=== PATIENT | female | born 1990 | race Caucasian/White ===

== ENCOUNTER 2020-06-19 09:47 | Outpatient (REF) | payer OTHER, SELFPAY ==
[2020-06-21 09:09] LABS: SARS-CoV-2 RNA Source Nasal/Nares
[2020-06-21 09:10] LABS: SARS-CoV-2 RNA Detected (NotDetected)
== END 2020-06-19 10:07 ==
LOC: LBO 09:47
PROVIDERS: PCP Nurse Practitioner; Visit Provider Nurse Practitioner Family
DX: Z11.59 Encounter for screening for other viral diseases (principal)
CPT/HCPCS: U0003

== ENCOUNTER 2021-02-25 11:36 | Outpatient (CLI) | payer OTHER, SELFPAY ==
--- NOTE | 2021-02-25 11:15 | DI.US_ITS ---
Exam(s) US OB 1ST TRIMESTER EXAM: US OB 1ST TRIMESTER CLINICAL HISTORY: pelvic pain at 5 weeks gestation, ? cyst, confirm IUP if poss. TECHNIQUE: First trimester obstetrical ultrasound was performed. COMPARISON: US OB US 2-3 TRIMESTER TRANSABD*P from 09/11/2015 FINDINGS: There is an intrauterine gestational sac which contains a yolk sac diameter-3 millimeters. Not able to visualize a pole at this time. Gestational sac measurement is approximately 6 weeks. There is a small subchorionic hemorrhage adjacent to the gestational sac Maternal ovaries: Left ovary is not seen. No fluid in the left adnexa. The right ovary measures 2.7 x 2.2 x 2.2 cm and contains corpus luteal cyst measuring 1.3 cm. There is no fluid in the cul-de-sac and adnexal regions. IMPRESSION:: Intrauterine gestational sac which contains a yolk sac but no obvious pole at thi s time. There is a small subchorionic hemorrhage. Recommend repeat transvaginal study in 1 week The left ovary was not able to be seen on today's study. There is no free fluid in the adnexal regions are cul-de-sac. DATA REPOSITORY:
[2021-02-25 12:20] LABS: HCG Quant, Pregnancy 14175 mIU/mL (1-3)
== END 2021-02-25 11:37 | disposition home or self-care (01) ==
LOC: LBO 12:05
PROVIDERS: PCP Nurse Practitioner; Visit Provider Advanced Practice Midwife
DX: R10.2 Pelvic and perineal pain (principal); N83.11 Corpus luteum cyst of right ovary; Z3A.01 Less than 8 weeks gestation of pregnancy
CPT/HCPCS: 36415; 76801; 84702

== ENCOUNTER 2021-03-01 02:28 | Outpatient (CLI) | payer OTHER, SELFPAY ==
[2021-03-01 15:12] LABS: HCG Quant, Pregnancy 30798 mIU/mL (1-3)
== END 2021-03-01 02:29 | disposition home or self-care (01) ==
LOC: LBO 02:28
PROVIDERS: PCP Nurse Practitioner; Visit Provider Advanced Practice Midwife
DX: N92.6 Irregular menstruation, unspecified (principal); R10.2 Pelvic and perineal pain
CPT/HCPCS: 36415; 84702

== ENCOUNTER 2021-04-06 03:23 | Outpatient (CLI) | payer OTHER, SELFPAY ==
[2021-04-06 12:10] LABS: Abs Immature Grans 0.02 10^3/uL (0.0-0.06); Absolute Basophil Count 0.02 10^3/uL (0.0-0.2); Absolute Lymphocyte Count 2.05 10^3/uL (1.2-3.4); Absolute Monocyte Count 0.54 10^3/uL (0.1-0.8); Absolute Neutrophil Count 6.93 10^3/uL (1.2-6.7); Basophils % 0.2; HCT 39.9 % (36.0-46.0); Immature Grans % 0.2; MCH 28.8 pg (27.0-33.0); MCHC 32.6 % (32.0-36.0); MCV 88.5 fL (80-95); MPV 10.6 fL (8.0-11.0); Monocytes % 5.5; Neutrophils % 71.1; Nucleated RBC 0 %; Platelet Count 261 10^3/uL (130-400); RBC 4.51 10^6/uL (3.93-5.22); RDW 12.8 % (11.7-14.6); RDW-SD 41.3 fL; WBC 9.76 10^3/uL (4.4-10.8)
[2021-04-06 12:14] LABS: Glucose,1 Hr (Glucola) 83 mg/dL (80-140)
[2021-04-06 14:02] LABS: TSH (W/Ref FT4) 1.49 uIU/mL (0.36-3.74)
[2021-04-07 11:13] LABS: Varicella IgG Antibody Positive (See Note)
[2021-04-07 11:14] LABS: Rubella IgG Ab (UVM) Positive (See Note)
[2021-04-07 11:46] LABS: Hepatitis B Surface Ag Negative (Negative)
[2021-04-07 12:10] LABS: Hepatitis C Ab w Rflx HCV PCR Negative (Negative)
[2021-04-07 12:35] LABS: HIV-1/2 Ag & Ab Screen Negative (Negative)
[2021-04-07 14:53] LABS: Chlamydia Result Negative (Negative); GC Result Negative (Negative)
[2021-04-08 11:07] LABS: Syphilis Total Ab w/Reflex Nonreactive (Nonreactive)
== END 2021-04-06 03:24 | disposition home or self-care (01) ==
LOC: LBO 03:23
PROVIDERS: Advanced Practice Midwife; PCP Nurse Practitioner; Visit Provider Advanced Practice Midwife
DX: O99.211 Obesity complicating pregnancy, first trimester (principal); R53.83 Other fatigue; Z11.3 Encounter for screening for infections with a predominantly sexual mode of transmission; Z11.4 Encounter for screening for human immunodeficiency virus [HIV]; Z11.59 Encounter for screening for other viral diseases; Z01.84 Encounter for antibody response examination; Z3A.11 11 weeks gestation of pregnancy
CPT/HCPCS: 36415; 82950; 86787; 86803; 86850; 86900; 86901; 87340; 87389; 87491; 87591; 84443; 85025; 86762; 86780; 87086

== ENCOUNTER 2021-07-26 03:24 | Outpatient (CLI) | payer OTHER, SELFPAY ==
[2021-07-26 09:25] LABS: HCT 37.6 % (36.0-46.0); HGB 12.2 g/dL (11.2-15.7); MCH 28.7 pg (27.0-33.0); MCHC 32.4 % (32.0-36.0); MCV 88.5 fL (80-95); MPV 11.1 fL (8.0-11.0); Platelet Count 266 10^3/uL (130-400); RBC 4.25 10^6/uL (3.93-5.22); RDW 12.3 % (11.7-14.6); RDW-SD 39.8 fL; WBC 8.79 10^3/uL (4.4-10.8)
[2021-07-26 09:32] LABS: Glucose,1 Hr (Glucola) 103 mg/dL (80-140)
== END 2021-07-26 03:25 | disposition home or self-care (01) ==
LOC: LBO 03:24
PROVIDERS: PCP Nurse Practitioner; Visit Provider Advanced Practice Midwife
DX: Z34.92 Encounter for supervision of normal pregnancy, unspecified, second trimester (principal); Z3A.26 26 weeks gestation of pregnancy
CPT/HCPCS: 36415; 82950; 85027

== ENCOUNTER 2021-09-18 03:44 | Inpatient (IN) | payer OTHER, SELFPAY ==
[2021-09-18 03:15] VITALS: BP 131/86; PULSE 72; RESP 16; TEMP 36.5; O2SAT 100
--- NOTE | 2021-09-18 04:03 | W.PM.OBHPL1 ---
Date of service: 09/18/21 Time of Service: 04:06 OB-HPI Labor/Delivery History of Present Illness Reason for Visit: PPROM at 64+4 Wks LLUVIA Calculator Estimated Delivery Date Method Current WG Current Estimate 10/26/21 LMP (Certain) 34w 4d Other Estimates 10/21/21 Ultrasound #1 35w 2d 10/28/21 Ultrasound #2 34w 2d History of Present Expected Delivery Route/Plan - CNM FOB/ - Gume Ochoa (3rd child together) BB yes to circ Plans to formula feed Plans unmedicated , may use ntirous oxide Specific Issues/Plan 1. BMI 38 - early GTT: 83, glucola @ 28 iso=237 2. Dione & do not wish to receive covid vaccine until after . Had covid 09/2019. 3. Declines serum genetic testing 4. Migraines - magnesium recommended. 5. nausea - ondansetron PRN, still taking at 19 weeks. PFSH All Active Problems (Updated 07/15/21 @ 08:38 by Destiny Pires) History of penicillin allergy (Acute) Family history of thyroid disease (Acute) Body mass index [BMI] 38.0-38.9, adult (Acute) (Acute) Migraine headache with aura (Acute 10/20/14) Medical History (Updated 07/15/21 @ 08:38 by Destiny Pires) Encounter for screening for other viral diseases Encounter to establish care Missed menses Pelvic pain Positive home test Family History (Updated 04/06/21 @ 10:44 by Vane Neville CNM) Mother Anxiety Depression Hypertension Sister Anxiety Migraines Sister Anxiety Depression Migraines Sister Migraines Grandfather Diabetes Heart disease [place] Stroke Grandmother Personal history of malignant neoplasm pancreatic Cancer Grandmother COPD (chronic obstructive pulmonary disease) Son Asthma Paternal Uncle Cancer throat cancer Paternal Aunt Cancer breast cancer Diabetes Maternal Aunt Cancer lung cancer Father Thyroid disease thyroidectomy Social History (Updated 11/16/20 @ 11:41 by Stephanie Villegas LPN) Smoking/Tobacco Use Status: Never Smoking risk assessment performed?: Yes Alcohol Intake: current Alcohol Intake frequency: a few times a month Drug use: Never Household members: spouse and children Number of Children: 2 Communication Needs: Corrective Lenses 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 [employer] Pets and animals: Yes Do you think of yourself as: straight/heterosexual Current gender identity: female What is your relationship status?: How often do you talk on the phone with friends or family?: three or more times per week Panel score (0-1 are the most socially isolated patients): 2 What type of physical activity do you participate in: none Seatbelt use: always Drive intox or ride w/intox auto carrier driver: No Working smoke detector in home: Yes Fire extinguisher in home: Yes Carbon monox detector in home: Yes Do you feel safe at home: Yes Do you feel safe in your relationship?: Yes History History 3 Para 2 Hx # Term Pregnancies 2 Multiple births 0 Hx # Pregnancies 0 Ectopic pregnancies 0 AB induced 0 Hx Number of Living Children 2 AB spontaneous 0 Past Pregnancies Del. Date GA/Weeks # Outcome Route Wgt Sex Labor Lgth Anesthesia Location Prov Complic 08/03/13 No Successful vaginal 7 lb 2 oz Male 12 [facility] - [facility] 02/05/16 No Successful vaginal 7 lb 6 oz Male 5 CN - [facility] Delivery Date: 08/03/13 Last Updated by: TORIE La, I.V. pain med, GBS pos. Delivery Date: 02/05/16 Last Updated by: TORIE La nitrous, GBS pos. Meds Allergies and Home Medications Allergies Allergy/AdvReac Type Severity Reaction Status Date / Time amoxicillin AdvReac Intermediate Sores Verified 09/09/21 08:11 mouth and throat Home Medications Medication Instructions Recorded Confirmed Type acetaminophen 325 mg tablet 650 mg PO Q4H PRN PRN tab 02/06/16 08/27/21 Rx (Tylenol) albuterol sulfate 90 mcg/actuation 2 puff INHALATION QID PRN #18 g 05/19/20 08/27/21 Rx aerosol inhaler multivitamin 1 tab PO DAILY 04/06/21 08/27/21 History Exam Physical Exam Vital signs: Temp Pulse Resp BP Pulse Ox 97.7 F 72 16 131/86 100 09/18/21 03:15 09/18/21 03:15 09/18/21 03:15 09/18/21 03:15 09/18/21 03:15 Detailed Labor and Delivery Exam Garibay Score: Cervical Points Exam 0 1 2 3 Dilation Closed 1-2cm 3-4 cm 5-6cm Effacement 0-30% 40-50% 60-70% 80% Consistency Firm Medium Soft Station -3 -2 -1,0 +1,+2 Position Posterior Mid Anterior Fetus A Date of Membrane Rupture: 09/18/21 Time of Membrane Rupture: 01:45 Risk Assessment Risk for Shoulder Dystocia Historical/Initial OB: POSITIVE FOR: Pre- BMI>30; NEGATIVE FOR: Pelvic Abnormality, Previous Shoulder Dystocia or Previous Macrosomia Risk for Pre-Eclampsia Yes, if one or more: NEGATIVE FOR: Hx Pre-E/Gest HTN, Chronic HTN, Multiple Gestation, Pre-gestational DM, Renal Disease, Systemic Lupus or APA Syndrome Yes, if 2 or more: POSITIVE FOR: BMI>30; NEGATIVE FOR: Nulliparity, Age>= 35 yrs, >10yr btwn pregnancies, ethinicty, Mother/Sister w/ Pre-E or Previous IUGR Risk for Post- Hemorrhage Initial: NEGATIVE FOR: Multiple Gestation, Previous PPH, Known Clotting Deficiency, Grand Multiparity or Anticoagulation
--- NOTE | 2021-09-18 04:09 | W.PM.OBHPL1 ---
Date of service: 09/18/21 Time of Service: 04:09 Assessment and Plan Assessment and plan (1) 34 weeks gestation of : Status: Acute Assessment and plan: A: 31 yo @ 34+4 wks PPROM @ 0145 confirmed via SSE Mild irregular contractions without cervical dilation Category 1 tracing; cephalic presentation in OP position per ultrasound GBS swab collected and sent to lab PCN allergy P: Admit to BC, CBC, T&S, COVID swab, start IVF Call to Dr. Saab to discuss pt status, transfer to [facility] recommended Call made to [facility] transfer line at 0415 to request OB transfer [facility] electrician supervisor airplane notified of plan of care Will hydrate w/IVF and observe for sx of progressing labor Awaiting acceptance of transfer from [facility] (2) premature rupture of membranes (PPROM) with unknown onset of labor: Status: Acute OB-HPI Labor/Delivery History of Present Illness Reason for Visit: PPROM at 34+4 Wks Chief Complaint: Uterine Contractions; Suspected Rupture of Membranes , Associated Signs and Symptoms of Suspected ROM: first gush at 0145. LLUVIA Calculator Estimated Delivery Date Method Current WG Current Estimate 10/26/21 LMP (Certain) 34w 4d Other Estimates 10/21/21 Ultrasound #1 35w 2d 10/28/21 Ultrasound #2 34w 2d Comments: Pt states she was in bed when she felt a gush at 0145, got up to go to the bathroom, the small gushes continued and then contractions began shortly thereafter. No bleeding, lots of movement, contractions are mild. Previous deliveries at 38 and 39 weeks gestation, was GBS+ for both births. History of Present Expected Delivery Route/Plan - CNM FOB/ - Gume Vigeant (3rd child together) BB yes to circ Plans to formula feed Plans unmedicated , may use ntirous oxide Specific Issues/Plan 1. BMI 38 - early GTT: 83, glucola @ 28 [id number] 2. Dione & do not wish to receive covid vaccine until after . Had covid 09/2019. 3. Declines serum genetic testing 4. Migraines - magnesium recommended. 5. nausea - ondansetron PRN, still taking at 19 weeks. Assessment: History Reviewed & Current Informed Consent Informed Consent: Risk,Benefits,Alternatives Discussed and Other (Discussed recommendation for transfer to [facility] for PPROM if is not in labor to have immediate access to NICU care for infant, pt verbalizes understanding) Review of Systems All systems reviewed & are unremarkable except as noted in HPI and below Constitutional Constitutional: Reports system reviewed and no additional complaints, except as documented Comments: Well appearing healthy female in NAD Cardiovascular Cardiovascular: Reports system reviewed and no additional complaints, except as documented Respiratory Respiratory: Reports system reviewed and no additional complaints, except as documented Gastrointestinal Gastrointestinal: Reports system reviewed and no additional complaints, except as documented Genitourinary Genitourinary: Reports system reviewed and no additional complaints, except as documented Musculoskeletal Musculoskeletal: Reports system reviewed and no additional complaints, except as documented Integumentary/Breasts Skin/Breast: Reports system reviewed and no additional complaints, except as documented Neurologic Neurologic: Reports system reviewed and no additional complaints, except as documented Psychiatric Psychiatric: Reports system reviewed and no additional complaints, except as documented PFSH All Active Problems (Updated 09/18/21 @ 04:24 by Destiny Pires) premature rupture of membranes (PPROM) with unknown onset of labor (Acute) 34 weeks gestation of (Acute) History of penicillin allergy (Acute) Family history of thyroid disease (Acute) Body mass index [BMI] 38.0-38.9, adult (Acute) (Acute) Migraine headache with aura (Acute 10/20/14) Medical History (Updated 09/18/21 @ 04:24 by Destiny Pires) Encounter for screening for other viral diseases Encounter to establish care Missed menses Pelvic pain Positive home test Family History (Updated 04/06/21 @ 10:44 by Vane Neville CNM) Mother Anxiety Depression Hypertension Sister Anxiety Migraines Sister Anxiety Depression Migraines Sister Migraines Grandfather Diabetes Heart disease [place] Stroke Grandmother Personal history of malignant neoplasm pancreatic Cancer Grandmother COPD (chronic obstructive pulmonary disease) Son Asthma Paternal Uncle Cancer throat cancer Paternal Aunt Cancer breast cancer Diabetes Maternal Aunt Cancer lung cancer Father Thyroid disease thyroidectomy Social History (Updated 11/16/20 @ 11:41 by Stephanie Villegas LPN) Smoking/Tobacco Use Status: Never Smoking risk assessment performed?: Yes Alcohol Intake: current Alcohol Intake frequency: a few times a month Drug use: Never Household members: spouse and children Number of Children: 2 Communication Needs: Corrective Lenses 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 Pets and animals: Yes Do you think of yourself as: straight/heterosexual Current gender identity: female What is your relationship status?: How often do you talk on the phone with friends or family?: three or more times per week Panel score (0-1 are the most socially isolated patients): 2 What type of physical activity do you participate in: none Seatbelt use: always Drive intox or ride w/intox industrial tractor driver: No Working smoke detector in home: Yes Fire extinguisher in home: Yes Carbon monox detector in home: Yes Do you feel safe at home: Yes Do you feel safe in your relationship?: Yes History History 3 Para 2 Hx # Term Pregnancies 2 Multiple births 0 Hx # Pregnancies 0 Ectopic pregnancies 0 AB induced 0 Hx Number of Living Children 2 AB spontaneous 0 Past Pregnancies Del. Date GA/Weeks # Outcome Route Wgt Sex Labor Lgth Anesthesia Location Prov Complic 08/03/13 No Successful vaginal 7 lb 2 oz Male 12 [facility] 02/05/16 No Successful vaginal 7 lb 6 oz Male 5 [facility] - [facility] Delivery Date: 08/03/13 Last Updated by: TORIE La I.V. pain med, GBS pos. Delivery Date: 02/05/16 Last Updated by: TORIE La nitrous, GBS pos. Meds Allergies and Home Medications Allergies Allergy/AdvReac Type Severity Reaction Status Date / Time amoxicillin AdvReac Intermediate Sores Verified 09/09/21 08:11 mouth and throat Home Medications Medication Instructions Recorded Confirmed Type acetaminophen 325 mg tablet 650 mg PO Q4H PRN PRN tab 02/06/16 08/27/21 Rx (Tylenol) albuterol sulfate 90 mcg/actuation 2 puff INHALATION QID PRN #18 g 05/19/20 08/27/21 Rx aerosol inhaler multivitamin 1 tab PO DAILY 04/06/21 08/27/21 History Exam Physical Exam Vital signs: Temp Pulse Resp BP Pulse Ox 97.7 F 72 16 131/86 100 09/18/21 03:15 09/18/21 03:15 09/18/21 03:15 09/18/21 03:15 09/18/21 03:15 Vital Signs Reviewed: Yes Constitutional Constitutional: no acute distress Detailed Labor and Delivery Exam Dilation: 0 Effacement (%): 50 station: -4 Position: Other (OP) Cervix position: posterior Consistency: firm LAY Score(Cervical Ripeness Score): 1 Amniotic Membrane Status: Ruptured Rupture Method: Spontaneous Amniotic Fluid: Clear and [place] Tinged Pooling: Positive Nitrazine: Positive Ferning: Present Monitor Mode: External Contraction Frequency(min): q 2-5 Contraction Duration(sec): 40-60 Contraction Intensity: Mild Fetus A Heart Rate Baseline: 140 Monitor Accelerations: 15 X 15 Monitor Decelerations: None Variability: Moderate (6-25 BPM) Presentation: Vertex (confirmed with bedside ultrasound) Categories: Category I Est. Weight: 4 lb 6.548 oz Est. Weight: 2000 gms Date of Membrane Rupture: 09/18/21 Time of Membrane Rupture: 01:45 Results Results Group Beta Strep: Done-Result Unknown Blood Type: O+ Rubella Status: Immune Varicella Immunity: Immune Risk Assessment Risk for Shoulder Dystocia Historical/Initial OB: POSITIVE FOR: Pre- BMI>30; NEGATIVE FOR: Pelvic Abnormality, Previous Shoulder Dystocia or Previous Macrosomia Increased Risk?: No Risk for Pre-Eclampsia Yes, if one or more: NEGATIVE FOR: Hx Pre-E/Gest HTN, Chronic HTN, Multiple Gestation, Pre-gestational DM, Renal Disease, Systemic Lupus or APA Syndrome Yes, if 2 or more: POSITIVE FOR: BMI>30; NEGATIVE FOR: Nulliparity, Age>= 35 yrs, >10yr btwn pregnancies, ethinicty, Mother/Sister w/ Pre-E or Previous IUGR Risk for Post- Hemorrhage Initial: NEGATIVE FOR: Multiple Gestation, Previous PPH, Known Clotting Deficiency, Grand Multiparity or Anticoagulation At Risk?: No Risks Reviewed Risks Reviewed Upon Admission: Yes
[2021-09-18] MEDS: Lactated Ringers 500 ML IV (04:30)
[2021-09-18 04:33] LABS: COVID-19 PCR Negative (Negative)
[2021-09-18 04:34] LABS: Source Nasal/Nares
[2021-09-18 04:45] LABS: Abs Immature Grans 0.04 10^3/uL (0.0-0.06); Absolute Basophil Count 0.03 10^3/uL (0.0-0.2); Absolute Lymphocyte Count 2.65 10^3/uL (1.2-3.4); Absolute Monocyte Count 0.72 10^3/uL (0.1-0.8); Absolute Neutrophil Count 7.29 10^3/uL (1.2-6.7); Basophils % 0.3; Eosinophils % 1.6; HCT 37.5 % (36.0-46.0); Immature Grans % 0.4; Lymphocytes % 24.3; MCH 26.8 pg (27.0-33.0); MCV 83.7 fL (80-95); MPV 12.7 fL (8.0-11.0); Monocytes % 6.6; Neutrophils % 66.8; Nucleated RBC 0 %; Platelet Count 259 10^3/uL (130-400); RBC 4.48 10^6/uL (3.93-5.22); RDW 12.4 % (11.7-14.6); RDW-SD 37.6 fL; WBC 10.91 10^3/uL (4.4-10.8)
[2021-09-18 04:46] LABS: Absolute Eosinophil Count 0.17 10^3/uL (0.0-0.7)
[2021-09-18] MEDS: Betamet Acet/Betamet Na Ph Inj. 30 MG/5 ML 12 MG IM (04:53)
[2021-09-18] MEDS: AZITHROMYCIN 500 MG in Normal Saline 250 ML 250 MG IVPB (05:02)
--- NOTE | 2021-09-18 05:29 | W.PM.OBNL1 ---
Date of service: 09/18/21 Time of Service: 05:29 Informed Consent Informed Consent: Risk,Benefits,Alternatives Discussed and Other (Discussed recommendation for transfer to [facility] for PPROM if is not in labor to have immediate access to NICU care for infant, pt verbalizes understanding) Pelvic Exam Dilation: 0.5 Effacement (%): 50 station: -4 Cervix Position: mid Consistency: medium Vaginal Exam Presentation: Cephalic Contractions Monitor Mode: External Contraction Frequency(min): irregular, 1 per 10 minutes Intensity: Mild Fetus A Heart Rate Baseline: 140 Presentation: Cephalic Variability: Moderate (6-25 BPM) Categories: Category I Accelerations: 15 X 15 Decelerations: None Assessment and Plan Assessment and plan (1) premature rupture of membranes (PPROM) with unknown onset of labor: Status: Acute Assessment and plan: A: PPROM @ 34 wks, [facility] accepting transfer GBS unknown, PCN allergic (remote hx of hives) Category 1 tracing Cvx recheck prior to departure: essentially unchanged, pt remains NAD P: Celestone 12 mg IM given per MFM request Contractions slowed after IVF bolus of LR Latency ATB's: Azythromycin 500 mg IV infusing Ancef 2 gms IV ordered, to be given en route COVID PCR swab negative Transfer ambulance enroute Transfer consent forms signed (2) 34 weeks gestation of : Status: Acute Objective Abnormal lab results 09/18/21 Range/Units 04:30 WBC 10.91 H (4.4-10.8) 10^3/uL MCH 26.8 L (27.0-33.0) pg MPV 12.7 H (8.0-11.0) fL Absolute Neutrophils 7.29 H (1.2-6.7) 10^3/uL Temp Pulse Resp BP Pulse Ox 97.7 F 72 16 131/86 100 09/18/21 03:15 09/18/21 03:15 09/18/21 03:15 09/18/21 03:15 09/18/21 03:15 Laboratory Results WBC 10.91 10^3/uL (4.4-10.8) H 09/18/21 04:30 RBC 4.48 10^6/uL (3.93-5.22) 09/18/21 04:30 Hgb 12.0 g/dL (11.2-15.7) 09/18/21 04:30 Hct 37.5 % (36.0-46.0) 09/18/21 04:30 MCV 83.7 fL (80-95) 09/18/21 04:30 MCH 26.8 pg (27.0-33.0) L 09/18/21 04:30 MCHC 32.0 % (32.0-36.0) 09/18/21 04:30 RDW 12.4 % (11.7-14.6) 09/18/21 04:30 Plt Count 259 10^3/uL (130-400) 09/18/21 04:30 MPV 12.7 fL (8.0-11.0) H 09/18/21 04:30 Immature Gran % 0.4 09/18/21 04:30 Neutrophils % 66.8 09/18/21 04:30 Lymphocytes % 24.3 09/18/21 04:30 Monocytes % 6.6 09/18/21 04:30 Eosinophils % 1.6 09/18/21 04:30 Basophils % 0.3 09/18/21 04:30 Nucleated RBC % 0 % 09/18/21 04:30 Absolute Neutrophils 7.29 10^3/uL (1.2-6.7) H 09/18/21 04:30 Absolute Lymphocytes 2.65 10^3/uL (1.2-3.4) 09/18/21 04:30 Absolute Monocytes 0.72 10^3/uL (0.1-0.8) 09/18/21 04:30 Absolute Eosinophils 0.17 10^3/uL (0.0-0.7) 09/18/21 04:30 Absolute Basophils 0.03 10^3/uL (0.0-0.2) 09/18/21 04:30 COVID-19 Source Nasal/Nares 09/18/21 03:34 SARS-CoV-2 (PCR) Negative (Negative) 09/18/21 03:34 Patient ABO/Rh O Positive 09/18/21 04:30 Antibody Screen NEGATIVE 09/18/21 04:30 Subjective Interval history since last seen: Pt reports contractions continue but are not painful
--- NOTE | 2021-09-18 05:45 | W.PM.OBDISCH ---
Date of service: 09/18/21 Time of Service: 05:46 DS: Diagnosis Discharge Diagnosis (1) premature rupture of membranes (PPROM) with unknown onset of labor: Status: Acute (2) 34 weeks gestation of : Status: Acute Discharge Plan Disposition Patient Disposition: [facility] Condition: Stable Discharge Details Reason For Visit: PPROM at 34+4 Wks Admit Date/Time: 09/18/21 03:44 Admit Provider: Destiny Pires Attending Provider: Destiny Pires Primary Care Provider: Melissa Kapoor Hospital Course Hospital Course: Admitted to Center, ROM confirmed but not in active labor, transferred to [facility] via ambulance Home Meds and New Rx's Prescriptions: No Action multivitamin Tablet 1 tab PO DAILY 0RF albuterol sulfate 90 mcg/actuation HFA aerosol inhaler 2 puff inhalation QID PRN (Reason: shortness of breath or wheezing) Qty: 18 5RF acetaminophen [Tylenol] 325 MG tablet 650 mg PO Q4H PRN PRN0RF Discharge Instructions Activity:: bedrest until arrival Diet:: Other Discharge Orders Discharge Orders: Discharge Order (Routine); Ordered 09/18/21 Ordered By: Destiny Pires OB:DS Summary Summary Procedures: discharged undelivered Contraception Discussed Contraception Discussed: No, Status at Discharge Functional status at discharge: independent ambulation Overall status at discharge: other (Pt is stable, not actively laboring, comfortable and NAD) Mental Status: mental status grossly normal Speech and Movement: speech and movement normal and speech clear Mood: congruent mood Affect: normal affect Time Spent with Patient providing and/or coordinating discharge services: Greater than 30 minutes Exam Physical Exam Vital signs: Temp Pulse Resp BP Pulse Ox 97.7 F 72 16 131/86 100 09/18/21 03:15 09/18/21 03:15 09/18/21 03:15 09/18/21 03:15 09/18/21 03:15 Vital Signs Reviewed: Yes Constitutional Constitutional: no acute distress HEENT Exam HEENT Exam: Normal Neck Exam Neck Exam: Normal Detailed Neck Exam Neck exam general surgery: Present full ROM Respiratory Exam Respiratory Exam: Normal Cardiovascular Exam Cardiovascular Exam: Normal Abdominal Exam Comments: Gravid, soft, nontender Fundal Exam Comment: 34 weeks gestation Rectal Exam Rectal Exam: Not Done Exam Comments: Nml female, SSE done confirming ROM Extremities Exam Extremity Exam: Normal Back/Spine/Pelvis Exam Back Exam: Normal Skin Exam Skin Exam: Normal Neurological Exam Neurological Exam: Normal Psychiatric Exam Psychiatric Exam: Normal PFSH All Active Problems (Updated 09/18/21 @ 04:24 by Destiny Pires) premature rupture of membranes (PPROM) with unknown onset of labor (Acute) 34 weeks gestation of (Acute) History of penicillin allergy (Acute) Family history of thyroid disease (Acute) Body mass index [BMI] 38.0-38.9, adult (Acute) (Acute) Migraine headache with aura (Acute 10/20/14) Medical History (Updated 09/18/21 @ 04:24 by Destiny Pires) Encounter for screening for other viral diseases Encounter to establish care Missed menses Pelvic pain Positive home test Family History (Updated 04/06/21 @ 10:44 by Vane Neville CNM) Mother Anxiety Depression Hypertension Sister Anxiety Migraines Sister Anxiety Depression Migraines Sister Migraines Grandfather Diabetes Heart disease [place] Stroke Grandmother Personal history of malignant neoplasm pancreatic Cancer Grandmother COPD (chronic obstructive pulmonary disease) Son Asthma Paternal Uncle Cancer throat cancer Paternal Aunt Cancer breast cancer Diabetes Maternal Aunt Cancer lung cancer Father Thyroid disease thyroidectomy Social History (Updated 11/16/20 @ 11:41 by Stephanie Villegas LPN) Smoking/Tobacco Use Status: Never Smoking risk assessment performed?: Yes Alcohol Intake: current Alcohol Intake frequency: a few times a month Drug use: Never Household members: spouse and children Number of Children: 2 Communication Needs: Corrective Lenses 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 [employer] Pets and animals: Yes Do you think of yourself as: straight/heterosexual Current gender identity: female What is your relationship status?: How often do you talk on the phone with friends or family?: three or more times per week Panel score (0-1 are the most socially isolated patients): 2 What type of physical activity do you participate in: none Seatbelt use: always Drive intox or ride w/intox jinriksha driver: No Working smoke detector in home: Yes Fire extinguisher in home: Yes Carbon monox detector in home: Yes Do you feel safe at home: Yes Do you feel safe in your relationship?: Yes History History 3 Para 2 Hx # Term Pregnancies 2 Multiple births 0 Hx # Pregnancies 0 Ectopic pregnancies 0 AB induced 0 Hx Number of Living Children 2 AB spontaneous 0 Past Pregnancies Del. Date GA/Weeks # Outcome Route Wgt Sex Labor Lgth Anesthesia Location Prov Complic 08/03/13 No Successful vaginal 7 lb 2 oz Male 12 [facility] - [facility] 02/05/16 No Successful vaginal 7 lb 6 oz Male 5 [facility] - [facility] Delivery Date: 08/03/13 Last Updated by: Vane Neville CNM Teddy, I.V. pain med, GBS pos. Delivery Date: 02/05/16 Last Updated by: Vane Neville CNM Hal, nitrous, GBS pos. DS: Data Vitals/I&O Vitals and I&O: Vital Signs Temperature 97.7 F 09/18/21 03:15 Pulse 72 09/18/21 03:15 Pulse Rhythm Regular 09/18/21 03:15 Respiratory Rate 16 09/18/21 03:15 Blood Pressure 131/86 09/18/21 03:15 Pulse Oximetry 100 09/18/21 03:15 Oxygen Delivery Method Room Air 09/18/21 03:15 Oxygen Flow Rate 0 09/18/21 03:15 Pain Level 0 09/18/21 03:15 Intake & Output 09/17/21 09/17/21 09/18/21 11:59 23:59 11:59 Weight 231 lb Other: Urine Color Pale Data Completed and Pending Labs on day of discharge: Labs from last 24 hours 09/18/21 09/18/21 09/18/21 04:30 04:30 03:44 WBC 10.91 H Cancelled RBC 4.48 Cancelled Hgb 12.0 Cancelled Hct 37.5 Cancelled MCV 83.7 Cancelled MCH 26.8 L Cancelled MCHC 32.0 Cancelled RDW 12.4 Cancelled Plt Count 259 Cancelled MPV 12.7 H Cancelled Immature Gran % 0.4 Neutrophils % 66.8 Lymphocytes % 24.3 Monocytes % 6.6 Eosinophils % 1.6 Basophils % 0.3 Nucleated RBC % 0 Absolute Neutrophils 7.29 H Absolute Lymphocytes 2.65 Absolute Monocytes 0.72 Absolute Eosinophils 0.17 Absolute Basophils 0.03 COVID-19 Source SARS-CoV-2 (PCR) Patient ABO/Rh O Positive Antibody Screen NEGATIVE 09/18/21 09/18/21 03:34 03:25 WBC RBC Hgb Hct MCV MCH MCHC RDW Plt Count MPV Immature Gran % Neutrophils % Lymphocytes % Monocytes % Eosinophils % Basophils % Nucleated RBC % Absolute Neutrophils Absolute Lymphocytes Absolute Monocytes Absolute Eosinophils Absolute Basophils COVID-19 Source Nasal/Nares Pending SARS-CoV-2 (PCR) Negative Pending Patient ABO/Rh Antibody Screen 09/18/21 03:25 Vaginal/Rectal Group B Streptococcus Culture - Pending Preliminary micro results at discharge 09/18/21 03:25 Group B Streptococcus Culture - Pending Vaginal/Rectal
[2021-09-18] MEDS: ceFAZolin 2,000 MG in Normal Saline 100 ML 200 MG IVPB (06:30)
== END 2021-09-18 05:45 | disposition short-term general hospital (02) | DRG 833 ==
PROVIDERS: Admitting Provider Advanced Practice Midwife; PCP Nurse Practitioner; Visit Provider Advanced Practice Midwife
DX: O42.913 Preterm premature rupture of membranes, unspecified as to length of time between rupture and onset of labor, third trimester (principal); Z3A.34 34 weeks gestation of pregnancy; O99.353 Diseases of the nervous system complicating pregnancy, third trimester; G43.109 Migraine with aura, not intractable, without status migrainosus
CPT/HCPCS: 85027; 86850; 86900; 86901; 87635; 96365; 96372; 85025; 87081; J0456; J0690; J0702

== ENCOUNTER 2023-04-24 12:09 | Outpatient (REF) | payer OTHER, SELFPAY | END 2023-04-24 12:10 | disposition home or self-care (01) | LOC: LBN 12:09 | PROVIDERS: PCP Nurse Practitioner; Visit Provider Nurse Practitioner | DX: R30.0 Dysuria (principal) | CPT/HCPCS: 87077; 87086; 87186 ==

== ENCOUNTER 2023-09-22 10:22 | Outpatient (REF) | payer OTHER, SELFPAY ==
[2023-09-22 16:44] LABS: COVID-19 PCR Negative (Negative); Influenza A PCR Negative (Negative); Influenza B PCR Negative (Negative); RSV PCR Negative (Negative)
[2023-09-22 16:58] LABS: Source Nasopharynx
== END 2023-09-22 10:23 | disposition home or self-care (01) ==
LOC: LBN 10:22
PROVIDERS: PCP Nurse Practitioner; Visit Provider Student in an Organized Health Care Education/Training Program
DX: J02.9 Acute pharyngitis, unspecified (principal); R50.9 Fever, unspecified
CPT/HCPCS: 87637; 87070

== ENCOUNTER 2023-10-18 07:37 | Emergency (ER) | payer OTHER, SELFPAY ==
[2023-10-18 07:41] VITALS: BP 169/110; PULSE 84; RESP 16; TEMP 36.7; O2SAT 98
--- NOTE | 2023-10-18 07:45 | DI.RAD_ITS ---
Exam(s) XR ANKLE LT COMPLETE EXAM: XR ANKLE LT COMPLETE CLINICAL HISTORY: lateral ankle pain after TECHNIQUE: 2D digital imaging was performed of the left ankle. Three images were obtained. AP, lat eral and oblique views were obtained. COMPARISON: No exams were available for comparison FINDINGS: BONES: No acute fracture is present. No bony destructive lesion is seen. JOINTS:The ankle mortise is normally aligned. SOFT TISSUE: Normal. IMPRESSION: Unremarkable radiographs of the left ankle. DATA REPOSITORY: RADIATION DOSE DELIVERED:
--- NOTE | 2023-10-18 07:47 | ED.GENADUL_ITS ---
Discharge Plan Disposition Patient Disposition: Home Condition: Good Discharge Details Clinical Impression: Left ankle sprain Primary Care Provider: Melissa Kapoor ED Provider: Pako Clayton Home Meds and New Rx's Prescriptions: No Action multivitamin Tablet 1 tab PO DAILY fluticasone propionate 50 mcg/actuation spray,suspension 2 spray intranasal DAILY PRN (Reason: congestion) Qty: 16 2RF Rx Instructions: administer into each nostril albuterol sulfate 90 mcg/actuation HFA aerosol inhaler 2 puff inhalation QID PRN (Reason: shortness of breath or wheezing) Qty: 18 5RF acetaminophen [Tylenol] 325 MG tablet 650 mg PO Q4H PRN PRN0RF Discharge Instructions Instructions: Ankle Sprain (ED) Additional Instructions: At this time your x-ray shows no evidence of fracture or other abnormality. I suspect a mild sprain to your lateral ankle. Please use the lace up ankle splint for support. Take Tylenol and Motrin as needed for pain. If you notice any worsening of your symptoms, or any new symptoms such as vomiting, diarrhea, fever, chills, shortness of breath, chest pain, numbness, weakness, or fainting , please return immediately to the emergency department for reevaluation. Please follow up with your primary care provider as soon as possible for reassessment and reevaluation. As always, it was a pleasure participating in your medical care today. Referrals: Melissa Kapoor, EBONY [Primary Care Provider] - [facility] General Date/Time Provider Initiated Documentation: 10/18/23 07:38 . HPI Narrative: 33-year-old female with no significant past medical for history who presents today for left ankle pain. Patient was walking at around 7 AM today when she slipped and twisted her ankle hitting the lateral aspect on the stairs. She had immediate pain. She came in to the ER for further assessment. She fell down about 5 stairs total, she did hit her left knee slightly has mild achiness there but no other pain throughout. She did not hit her head. No loss of consciousness. Pain is made worse with movement. Improved by nothing. No other complaints at this time. Related Data Home Medications Medication Instructions Recorded Confirmed acetaminophen 325 mg tablet 650 mg (2 x 325 mg) PO Q4H PRN PRN 02/06/16 10/18/23 (Tylenol) multivitamin 1 tab PO DAILY 04/06/21 10/18/23 fluticasone propionate 50 2 spray intranasal DAILY PRN 07/29/22 10/18/23 mcg/actuation nasal congestion #16 grams spray,suspension albuterol sulfate 90 mcg/actuation 2 puff inhalation QID PRN 09/29/23 10/18/23 aerosol inhaler shortness of breath or wheezing #18 grams Previous Rx's Medication Instructions Recorded acetaminophen 325 mg tablet 650 mg (2 x 325 mg) PO Q4H PRN PRN 02/06/16 (Tylenol) fluticasone propionate 50 2 spray intranasal DAILY PRN 07/29/22 mcg/actuation nasal congestion #16 grams spray,suspension albuterol sulfate 90 mcg/actuation 2 puff inhalation QID PRN 09/29/23 aerosol inhaler shortness of breath or wheezing #18 grams Allergies Allergy/AdvReac Type Severity Reaction Status Date / Time amoxicillin AdvReac Intermediate Sores Verified 10/18/23 07:46 mouth and throat General Stated Complaint: Orthopedic JOSH: 4 Review of Systems All systems reviewed & are unremarkable except as noted in HPI and below Exam Narrative Exam Narrative: 1.Const: Well-nourished, Well-developed, appearing stated age 2.Eyes: PERRL, no conjunctival injection, and symmetrical lids. 3.ENT: Atraumatic external nose and ears. Moist MM. Neck: Symmetric, trachea midline, No thyromegaly. 4.CVS: +S1/S2, No murmurs or gallops. Peripheral pulses 2+ and equal in all extremities. Brisk capillary refill in all extremities. 5.RESP: Unlabored respiratory effort. Clear to auscultation bilaterally. No wheezes rales or rhonchi 6.GI: Soft, Nontender/Nondistended, No hepatosplenomegaly. No guarding or rebound. 7.MSK: Normocephalic. Left ankle demonstrates abrasion on the lateral malle olus. Mild tenderness in that area. No medial tenderness. No tenderness over the midfoot or calcaneus. Mild achiness to inversion and eversion. Minimal achiness to plantar and dorsiflexion. No instability. Left knee: The knee is stable to varus, valgus, and anterior drawer stress. No deformity. Patellar grind test is negative. Catarino test is negative for pain. Patient is able to walk without difficulty. No edema or warmth to the joint. No ttp to the patella, tibial plateau, or fibular head. 8.Skin: Warm, Dry. No rashes or lesions. 9.Neuro: fitness and wellness manager II-XII grossly intact. Sensation grossly intact, no focal neurologic deficits. 10.Psych: (AAO) x3. Appropriate mood and affect Course Vital Signs Vital signs: Vital Signs Temperature 36.7 C 10/18/23 07:41 Pulse 84 10/18/23 07:41 Respiratory Rate 16 10/18/23 07:41 Blood Pressure 169/110 H 10/18/23 07:41 Pulse Oximetry 98 10/18/23 07:41 Temperature 36.7 C 10/18/23 07:41 Temperature Source Tympanic 10/18/23 07:41 Pulse 84 10/18/23 07:41 Respiratory Rate 16 10/18/23 07:41 Respiratory Effort Normal 10/18/23 07:45 Blood Pressure 169/110 H 10/18/23 07:41 Blood Pressure Position Sitting 10/18/23 07:41 Pulse Oximetry 98 10/18/23 07:41 Oxygen Delivery Method Room Air 10/18/23 07:41 Oxygen Flow Rate 0 10/18/23 07:41 Pain Level 7 10/18/23 07:41 Medical Decision Making 33-year-old female with no significant past medical for history who presents today for left ankle pain. Patient was walking at around 7 AM today when she slipped and twisted her ankle hitting the lateral aspect on the stairs. She had immediate pain. She came in to the ER for further assessment. She fell down about 5 stairs total, she did hit her left knee slightly has mild achiness there but no other pain throughout. She did not hit her head. No loss of consciousness. Pain is made worse with movement. Improved by nothing. No other complaints at this time. Exam demonstrates well-appearing female, mild abrasion on the left lateral ankle, no instability. Mild lateral malleolus tenderness. Differential is highest for sprain and contusion, however fracture is on the differential due to the mechanism. Knee is unremarkable on exam and shows no evidence of injury requiring x-ray. Will get an x-ray of the left ankle, will administer Motrin. Patient denies . Will monitor closely and reassess. 8:54 AM Workup has returned, x-ray negative for acute process. No evidence of fracture. Suspect sprain. Will give lace up ankle brace and crutches. Recommend nonweightbearing for the next 3 days, followed by gradual toe-touch and then transitioning forward. Recommend continued NSAIDs and ice. Discussed red flags for which to return. I have extensively reviewed the treatment plan and discharge instructions with the patient and their family. I have addressed all patient concerns at this time. The patient and family was made aware of what sym ptoms to monitor for that would warrant a return to the emergency department. Discussed the plan with the patient and family, they demonstrate verbal understanding and agreement with our assessment and plan at this time. The documentation in this chart was dictated using [employer] dictation software. Please excuse any dictation errors. FINDINGS: BONES: No acute fracture is present. No bony destructive lesion is seen. JOINTS:The ankle mortise is normally aligned. SOFT TISSUE: Normal. IMPRESSION: Unremarkable radiographs of the left ankle. Quality:SDOH Health Related Social Needs: No Data to Display PFSH All Active Problems (Updated 10/18/23 @ 08:26 by Pako Clayton DO) Left ankle sprain (Acute) Sore throat due to virus (Acute) presumed viral per Hx, Neg rapid strep Sinus pain (Acute) Sinusitis, acute (Acute) History of penicillin allergy (Acute) Family history of thyroid disease (Acute) Body mass index [BMI] 38.0-38.9, adult (Acute) Migraine headache with aura (Acute 10/20/14) Medical History Initiation of oral contraception premature rupture of membranes (PPROM) with unknown onset of labor 34 weeks gestation of Pelvic pain Positive home test Missed menses Encounter to establish care Encounter for screening for other viral diseases Family History Mother Anxiety Depression Hypertension Sister Anxiety Migraines Sister Anxiety Depression Migraines Sister Migraines Grandfather Diabetes Heart disease [place] Stroke Grandmother Personal history of malignant neoplasm pancreatic Cancer Grandmother COPD (chronic obstructive pulmonary disease) Son Asthma Paternal Uncle Cancer throat cancer Paternal Aunt Cancer breast cancer Diabetes Maternal Aunt Cancer lung cancer Father Thyroid disease thyroidectomy Social History Smoking/Tobacco Use Status: Never Smoking risk assessment performed?: Yes Alcohol Intake: current Alcohol Intake frequency: a few times a month Drug use: Never Household members: spouse and children Number of Children: 2 Communication Needs: Corrective Lenses 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 [employer] Pets and animals: Yes Do you think of yourself as: straight/heterosexual Current gender identity: female What is your relationship status?: How often do you talk on the phone with friends or family?: three or more times per week Panel score (0-1 are the most socially isolated patients): 2 What type of physical activity do you participate in: none Seatbelt use: always Drive intox or ride w/intox taxicab driver: No Working smoke detector in home: Yes Fire extinguisher in home: Yes Carbon monox detector in home: Yes Do you feel safe at home: Yes Do you feel safe in your relationship?: Yes History History 3 Para 2 Hx # Term Pregnancies 2 Multiple births 0 Hx # Pregnancies 0 Ectopic pregnancies 0 AB induced 0 Hx Number of Living Children 2 AB spontaneous 0 Past Pregnancies Del. Date GA/Weeks # Preg Succ Route Wgt Sex Labor Lgth Anesth esia Location [facility] 08/03/13 No vaginal 3231.846 g Male 12 [facility] 02/05/16 No vaginal 3345.244 g Male 5 [facility] - [facility] 09/18/21 34 No vaginal 2494.758 g Male Delivery Date: 08/03/13 Last Updated by: TORIE La, I.V. pain med, GBS pos. Delivery Date: 02/05/16 Last Updated by: TORIE La, nitrous, GBS pos. Delivery Date: 09/18/21 Last Updated by: Cherri Lin pt had PROM and delivered at [facility] at 34.4.
[2023-10-18] MEDS: Ibuprofen 800 MG TAB PO (07:53)
[2023-10-18 09:07] VITALS: BP 145/72; PULSE 88; RESP 20; TEMP 36.8; O2SAT 98
== END 2023-10-18 09:07 | disposition home or self-care (01) ==
PROVIDERS: Emergency Provider Student in an Organized Health Care Education/Training Program; PCP Nurse Practitioner
DX: M25.572 Pain in left ankle and joints of left foot (principal); S93.402A Sprain of unspecified ligament of left ankle, initial encounter; M25.562 Pain in left knee; W10.9XXA Fall (on) (from) unspecified stairs and steps, initial encounter
CPT/HCPCS: 81025; 99283; 73610

== ENCOUNTER 2025-07-09 01:34 | Outpatient (CLI) | payer OTHER, SELFPAY ==
[2025-07-09 07:54] LABS: Abs Immature Grans 0.02 10^3/uL (0.0-0.06); HCT 40.8 % (36.0-46.0); HGB 13.2 g/dL (11.2-15.7); Immature Grans % 0.3 %; MCH 28.3 pg (27.0-33.0); MCHC 32.4 % (32.0-36.0); MCV 87 fL (80-95); MPV 10.8 fL (8.0-11.0); Platelet Count 276 10^3/uL (130-400); RBC 4.67 10^6/uL (3.93-5.22); RDW 13.1 % (11.7-14.6); RDW-SD 42.0 fL; WBC 7.85 10^3/uL (4.4-10.8)
[2025-07-09 08:22] LABS: Ferritin 15 ng/mL (7-271); Magnesium 2.0 mg/dL (1.6-2.6); TSH (W/Ref FT4) 3.34 uIU/mL (0.55-4.78)
[2025-07-09 08:24] LABS: ALT 12 U/L (10-49); AST 15 U/L (<34); Albumin 4.4 g/dL (3.2-5.0); Alkaline Phosphatase 72 U/L (46-116); Anion Gap 10 mmol/L (3-11); BUN 12 mg/dL (9-23); Bilirubin, Total 0.50 mg/dL (0.2-1.2); CO2 25.0 mmol/L (20.0-31.0); Calcium 9.0 mg/dL (8.3-10.6); Chloride 105 mmol/L (98-107); Cholesterol 145 mg/dL (<200); Glucose 91 mg/dL (74-106); HDL Cholesterol 51 mg/dL (>40); Potassium 3.9 mmol/L (3.5-5.1); Sodium 140 mmol/L (136-145); Total Protein 7.4 g/dL (5.7-8.2)
[2025-07-09 09:21] LABS: Folate > 24.0 ng/mL (>5.38); Vitamin B12 490 pg/mL (211-911)
[2025-07-09 09:51] LABS: Iron 86 ug/dL (50-170); Total Iron Binding Capacity 345 ug/dL (250-425); Transferrin Sat 25 % (15-50)
== END 2025-07-09 01:35 | disposition home or self-care (01) ==
LOC: LBO 01:34
PROVIDERS: PCP Nurse Practitioner Adult Health; Visit Provider Nurse Practitioner Adult Health
DX: R53.83 Other fatigue (principal); G43.109 Migraine with aura, not intractable, without status migrainosus; Z83.49 Family history of other endocrine, nutritional and metabolic diseases
CPT/HCPCS: 36415; 80053; 80061; 82607; 82728; 82746; 83540; 83550; 83735; 84443; 85025